=== PATIENT | male | born 1960 | race Caucasian/White ===

== ENCOUNTER 2024-05-02 07:53 | Inpatient (IN) | payer MEDICARE, BC ==
[~2024-05-02] VITALS: Ht 188 cm; Wt 113.6 kg
[2024-05-02] MEDS ORDERED: Morphine Sulfate 4 MG/1 ML Injection IV ONE (09:25)
[2024-05-02 09:29] LABS: BASOPHILS ABSOLUTE AUTO 0.07 K/mm3 (0.00-0.23); BASOPHILS PERCENT AUTO 1 % (0-2); EOSINOPHILS ABSOLUTE AUTO 0.13 K/mm3 (0.00-0.68); EOSINOPHILS PERCENT AUTO 1 % (0-6); Hematocrit 43.3 % (37.0-53.0); Hemoglobin 13.1 g/dL (13.5-17.5); IMMATURE GRAN ABSOLUTE AUTO 0.04 K/mm3 (0.00-0.10); IMMATURE GRAN PERCENT AUTO 0 % (0-1); LYMPHOCYTES PERCENT AUTO 11 % (21-46); MONOCYTES ABSOLUTE AUTO 1.21 K/mm3 (0.16-1.47); MONOCYTES PERCENT AUTO 10 % (4-13); Mean Corpuscular HGB 26.1 pg (26.0-34.0); Mean Corpuscular HGB Conc 30.3 g/dL (31.5-36.5); Mean Corpuscular Volume 86 fL (80-100); Mean Platelet Volume 8.6 fL (9.1-12.4); NEUTROPHILS ABSOLUTE AUTO 8.87 K/mm3 (1.96-9.15); NEUTROPHILS PERCENT AUTO 76 % (41-73); Platelet Count 469 K/mm3 (150-400); RDW Coefficient Variation 17.9 % (11.7-14.2); RDW Standard Deviation 56.6 fL (35.1-46.3); Red Blood Cell Count 5.02 M/mm3 (4.30-5.90); White Blood Cell Count 11.62 K/mm3 (4.00-11.30)
[2024-05-02 09:49] LABS: Albumin, Blood 2.7 g/dL (3.4-5.0); Albumin/Globulin Ratio 0.5 (0.8-1.8); Bilirubin, Total 0.5 mg/dL (0.1-1.0); Bun/Creatinine Ratio 22.8 (12.0-20.0); C-REACTIVE PROTEIN, EXT RANGE 12.6 mg/dL (0.000-0.300); Calcium, Blood 8.6 mg/dL (8.5-10.1); Creatinine, Blood 0.92 mg/dL (0.60-1.20); Globulin, Blood 5.5 g/dL (2.2-4.0); Potassium, Blood 3.5 mmol/L (3.5-5.5); Total Protein, Blood 8.2 g/dL (6.4-8.2)
[2024-05-02] MEDS ORDERED: Ampicillin Sod/Sulbactam Sod 3 GM in NS 100 ML IV ONE (10:25)
[2024-05-02] MEDS ORDERED: Vancomycin HCL 2,000 MG in NS 500 ML IV ONE (10:45)
[2024-05-02] MEDS ORDERED: Acetaminophen 325 MG TABLET PO PRN (12:15)
[2024-05-02] MEDS ORDERED: Polyethylene Glycol 3350 17 gm PO PRN (12:20)
[2024-05-02] MEDS ORDERED: Ondansetron HCl 2 MG / ML 2ML Vial IV PRN (12:20)
[2024-05-02] MEDS ORDERED: Morphine Sulfate 4 MG/1 ML Injection IV PRN (12:20)
[2024-05-02] MEDS ORDERED: OxyCODONE HCL 5 MG TAB PO PRN (12:20)
[2024-05-02] MEDS ORDERED: [UNRECOGNIZED DRUG - OTHER] (14:30)
[2024-05-02] MEDS ORDERED: KETAMINE (14:30)
[2024-05-02] MEDS ORDERED: IVERMECTIN PO (14:30)
[2024-05-02] MEDS ORDERED: AMPHOTERICIN B (14:30)
[2024-05-02 14:31] VITALS: BP 117/93
[2024-05-02] MEDS ORDERED: SOAANZ20 M3 PO (14:31)
[2024-05-02] MEDS ORDERED: [UNRECOGNIZED DRUG - OTHER] MC (14:31)
[2024-05-02] MEDS ORDERED: DULOXETINE HCL60 M1 PO (14:31)
[2024-05-02] MEDS ORDERED: ELIQUIS2.5 M1 PO (14:31)
[2024-05-02] MEDS ORDERED: COLACE100 MG PO (14:31)
[2024-05-02] MEDS ORDERED: LIPITOR80 MG PO (14:31)
[2024-05-02] MEDS ORDERED: Dilaudid 2 mg Ta2 MG (14:31)
[2024-05-02] MEDS ORDERED: NEURONTIN40010 PO (14:31)
[2024-05-02] MEDS ORDERED: FUROSEMIDE40 MG PO (14:31)
--- NOTE | 2024-05-02 14:31 | NUR ---
PATIENT ARRIVED TO THE FLOOR FROM ER TODAY. PATIENT IS A&OX2 - HE COULDN'T REMEMBER WHAT CITY HE IS IN OR WHAT THE DATE WAS. PATIENT IS CURRENTLY ON 2L NC WITH >90% OXYGEN SATS. PATIENT DENIES PAIN AT THIS TIME. PATIENT HAS BILATERAL LOWER LEG ULCERS BEHIND HIS SHINS. PATIENT ALSO HAS SCABS FROM HIS KNEES DOWN AND HIS RIGHT KNEE HAS MORE SWELLING NOTED THAN THE LEFT KNEE. PATIENT IS ABLE TO WIGGLE ALL FINGERS AND TOES WHEN ASKED. HE WAS ABLE TO SCOOT HIMSELF FROM THE ER GURNEY TO THE BED. PATIENT IS LAYING IN BED WITH CALL LIGHT IN REACH.
[2024-05-02] MEDS ORDERED: OXYC10TA19 PO (14:32)
[2024-05-02] MEDS ORDERED: LOSARTAN POTAS100 M1 PO (14:32)
--- NOTE | 2024-05-02 15:57 | NUR ---
THIS NURSE GAVE REPORT TO LYNDON LAKE. LYNDON LAKE HAS ASSUMED CARE AT THIS TIME.
--- NOTE | 2024-05-02 16:31 | NUR ---
REPORT RECEIVED FROM RNSAVANNAH
[2024-05-02] MEDS ORDERED: Ampicillin Sod/Sulbactam Sod 3 GM in NS 100 ML IV SCH (18:00)
[2024-05-02] MEDS ORDERED: NS 250 ML IV PRN (18:15)
--- NOTE | 2024-05-02 18:18 | NUR ---
DR. JEAN AT BEDSIDE AT THIS TIME
[2024-05-02 19:04] VITALS: BP 122/86
--- NOTE | 2024-05-02 19:29 | NUR ---
SUMMARY: NO ACUTE CHANGE SINCE RECEIVED REPORT. PT ABLE TO REST TONIGHT, BED ALARM ON FOR SAFETY, CALL LIGHT IN REACH. DR. JEAN ASPIRATED FLUID FROM R KNEE AT BEDSIDE, THIS RN IN ROOM TO ASSIST. FLUID SENT TO LAB. PLAN IS NPO AT 0000 AND R KNEE I&D TOMORROW. REPORT PASSED TO JEERMI HAMMOND RN.
[2024-05-02] MEDS ORDERED: Docusate Sodium/Senna 1 Tab PO SCH (21:00)
[2024-05-02] MEDS ORDERED: Lactobacil 2-S.Thermo-Bifido 1 1 Cap PO SCH (21:00)
[2024-05-02] MEDS ORDERED: Vancomycin HCL 1,750 MG in NS 500 ML IV SCH (23:00)
[2024-05-03] VITALS (8 sets, daily range): BP systolic 118–141; BP diastolic 88–104
[2024-05-03] MEDS ORDERED: Morphine Sulfate 10 MG/ML 1MLSYR IV PRN (02:55)
--- NOTE | 2024-05-03 04:34 | NUR ---
SHIFT SUMMARY S/P R SEPTIC KNEE. NO ACUTE CHANGES OVERNIGHT. VSS, PT ON 2L O2 VIA NC TO MAINTAIN SAT >90% WHILE ASLEEP. PT NPO IN ANTICIPATION OF SURGERY LATER TODAY. PT USES URINAL IND TO VOID. NO BM. PT NOT FULLY ORIENTED AT THIS TIME. PT AWAKES FROM SLEEP c LOUD GRUNTING. PT EXPRESSESS AGRESSIVE TONE WHEN OFFERING PAIN MANAGEMENT THAT IS NOT "THAT MORPHINE IV STUFF". PT EDUCATION ATTEMPTED R/T PAIN MANAGEMENT AND ALTERNATIVE/ADJUNCTIVE THERAPIES, PT NOT RECEPTIVE. 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 LEGS ELEVATED ON PILLOWS. PT SLEPT MOST OF THE NIGHT. CALL LIGHT IN REACH, BED IN LOWEST POSITION, WILL REPORT TO DAY RN.
[2024-05-03 05:01] LABS: BASOPHILS ABSOLUTE AUTO 0.06 K/mm3 (0.00-0.23); BASOPHILS PERCENT AUTO 1 % (0-2); EOSINOPHILS ABSOLUTE AUTO 0.22 K/mm3 (0.00-0.68); EOSINOPHILS PERCENT AUTO 3 % (0-6); Hematocrit 41.4 % (37.0-53.0); Hemoglobin 12.2 g/dL (13.5-17.5); IMMATURE GRAN ABSOLUTE AUTO 0.03 K/mm3 (0.00-0.10); IMMATURE GRAN PERCENT AUTO 0 % (0-1); LYMPHOCYTES ABSOLUTE AUTO 1.06 K/mm3 (0.84-5.20); LYMPHOCYTES PERCENT AUTO 14 % (21-46); MONOCYTES ABSOLUTE AUTO 0.82 K/mm3 (0.16-1.47); MONOCYTES PERCENT AUTO 11 % (4-13); Mean Corpuscular HGB 26.3 pg (26.0-34.0); Mean Corpuscular HGB Conc 29.5 g/dL (31.5-36.5); Mean Corpuscular Volume 89 fL (80-100); Mean Platelet Volume 8.7 fL (9.1-12.4); NEUTROPHILS ABSOLUTE AUTO 5.49 K/mm3 (1.96-9.15); NEUTROPHILS PERCENT AUTO 71 % (41-73); Platelet Count 385 K/mm3 (150-400); RDW Coefficient Variation 17.7 % (11.7-14.2); RDW Standard Deviation 57.7 fL (35.1-46.3); Red Blood Cell Count 4.64 M/mm3 (4.30-5.90); White Blood Cell Count 7.68 K/mm3 (4.00-11.30)
[2024-05-03 05:31] LABS: Albumin, Blood 2.4 g/dL (3.4-5.0); Anion Gap 7 mmol/L (3-11); Blood Urea Nitrogen 14 mg/dL (8-24); Bun/Creatinine Ratio 16.5 (12.0-20.0); CO2, Blood 29 mmol/L (21-32); Calcium, Blood 8.4 mg/dL (8.5-10.1); Chloride, Blood 107 mmol/L (98-108); Creatinine, Blood 0.85 mg/dL (0.60-1.20); Glomerular Filtration Rate 97 (60-); Glucose, Blood 96 mg/dL (70-99); Magnesium, Blood 2.4 mg/dL (1.6-2.4); Phosphorus, Blood 4.2 mg/dL (2.5-4.9); Potassium, Blood 3.7 mmol/L (3.5-5.5); Sodium, Blood 139 mmol/L (136-145)
[2024-05-03] MEDS ORDERED: DULoxetine HCL 60 MG Capsule DR PO SCH (09:00)
[2024-05-03] MEDS ORDERED: Furosemide 40 MG Tab PO SCH (09:00)
[2024-05-03] MEDS ORDERED: Gabapentin 300 MG Cap PO SCH (09:00)
[2024-05-03] MEDS ORDERED: Losartan Potassium 50 MG Tab PO SCH (09:00)
[2024-05-03] MEDS ORDERED: Lactated Ringer's 1,000 ML IV SCH (15:50)
[2024-05-03] MEDS ORDERED: Lactated Ringer's 1,000 ML IV ONE (15:53)
--- NOTE | 2024-05-03 16:08 | NUR ---
PATIENT JUST LEFT FOR THE OR.
--- NOTE | 2024-05-03 16:08 | NUR ---
PT HAS 20G IV TO RIGHT AC THAT FLUSHES WELL AND FLOWS TO GRAVITY.
--- NOTE | 2024-05-03 16:20 | NUR ---
TO OR [facility]IA [facility]
--- NOTE | 2024-05-03 16:29 | NUR ---
1606: PT BROUGHT FROM FLOOR TO [facility] FOR PROCEDURE. 1615: DR WILSON AT BEDSIDE TO PERFORM FEMORAL NERVE BLOCK IN PREOP. 1617: TIMEOUT COMPLETE BY RN. NO PREMEDS GIVEN. 1618: BLOCK START TIME. 1625: BLOCK END TIME. V/S MONITORED THROUGHOUT. PT O2 SATS WOULD DROP BECAUSE HE WAS HOLDING HIS BREATH. O2 SATS WOULD IMPROVE WHEN PT WAS TOLD TO TAKE DEEP BREATHS. OTHERWISE, VSS. PT TOLERATED BLOCK WELL.
--- NOTE | 2024-05-03 17:11 | NUR ---
1700 returned to room post i and d to right knee. pt denies pain. able to wiggle bilateral toes and bend both ankles. pt reports no feeling to right leg from 3" above right knee downward. denies nausea, snacks given per request. right rylie wrap present to rle clean dry and intact
--- NOTE | 2024-05-03 17:39 | NUR ---
PY CLAYTON PO FOOD AND FLUID WITHOUT NAUSEA, VOIDING CLEAR YELLOW URINE. PT DENIES ANY PAIN TO RIGHT LEG. NO CHANGE IN LEVEL OF SENSATION SINCE RETURN FROM SURGERY
--- NOTE | 2024-05-03 18:24 | NUR ---
PT REPORTS PAIN IS NOW 8/10 TO BOTH LEGS, DENIES SENSATION FROM 3" ABOVE KNEE TO BOTTOM OF RIGHT FOOT. PT RAISED VOICE WHEN OFFERED PAIN PILL AND STATES HE ONLY WANTS MORPHINE, DISCUSSED WITH PATIENT REGARDING TRANSITIONING TO PO MEDS SO WE CAN MAKE SURE HE HAS ADEQUATE PAIN RELIEF AT DISCHARGE. PT STATES "GIVE ME MY DAMN MORPHINE" MORPHINE GIVEN PT REQUEST R KNEE DRESSING DRY AND INTACT. MULTIPLE SCABS AND SCRATCHES TO BLE, PT REPORTS LEGS VERY ITCHY AND HE SCRATCHES THEM UNTIL THEY BLEED
--- NOTE | 2024-05-03 19:05 | NUR ---
ASSUMPTION OF CARE RECEIVIED REPORT FROM SAVANNAH LAKE. PT ASLEEP DURING BEDSIDE REPORT. VSS. POD 0 I&D R KNEE. SHYANNE WRAP IN PLACE. SCABS TO BILAT LOWER EXTREMITIES REMAIN UNCHANGED AT THIS TIME. IV ABX PER EMAR. CALL LIGHT IN REACH, BED IN LOWEST POSITION.
[2024-05-03] MEDS ORDERED: METHYLENE BLUE PO (21:14)
[2024-05-03] MEDS ORDERED: KETAMINE SL (21:17)
--- NOTE | 2024-05-03 22:02 | NUR ---
PT TRANSFER REPORT GIVEN TO [facility] FLOOR NURSE. VSS. TOLERATING ORALS. S/P I&D OF R KNEE. WBAT. ANTICIPATED IV ABX.
[2024-05-03 23:03] LABS: Vancomycin, Trough 21.3 ug/mL (5.0-10.0)
[2024-05-04] MEDS ORDERED: Vancomycin HCL 1,750 MG in NS 500 ML IV SCH (03:00)
[2024-05-04 03:42] VITALS: BP 130/89
[2024-05-04 05:30] LABS: Hematocrit 41.7 % (37.0-53.0); Hemoglobin 11.9 g/dL (13.5-17.5); Mean Corpuscular HGB 25.5 pg (26.0-34.0); Mean Corpuscular HGB Conc 28.5 g/dL (31.5-36.5); Mean Corpuscular Volume 89 fL (80-100); Mean Platelet Volume 8.9 fL (9.1-12.4); Platelet Count 376 K/mm3 (150-400); RDW Coefficient Variation 17.3 % (11.7-14.2); RDW Standard Deviation 56.5 fL (35.1-46.3); Red Blood Cell Count 4.67 M/mm3 (4.30-5.90); White Blood Cell Count 6.58 K/mm3 (4.00-11.30)
[2024-05-04 05:55] LABS: Albumin, Blood 2.4 g/dL (3.4-5.0); Anion Gap 10 mmol/L (3-11); Blood Urea Nitrogen 16 mg/dL (8-24); Bun/Creatinine Ratio 17.9 (12.0-20.0); CO2, Blood 25 mmol/L (21-32); Chloride, Blood 109 mmol/L (98-108); Glomerular Filtration Rate 95 (60-); Glucose, Blood 96 mg/dL (70-99); Potassium, Blood 4.1 mmol/L (3.5-5.5); Sodium, Blood 140 mmol/L (136-145)
--- NOTE | 2024-05-04 07:28 | NUR ---
SHIFT SUMMARY: PATIENT FULLY ORIENTED, COOPERATIVE, DARK HUMOR. WRAPPED LEGS IN DRESSINGS. PUT ON CPAP AT NIGHT. SLEPT FAIRLY WELL. VANC TROUGH CRITICAL AT 21.3, SHANI HAYNES AWARE.
[2024-05-04 07:31] VITALS: BP 144/94
[2024-05-04] MEDS ORDERED: Torsemide 20 MG TAB PO SCH (09:00)
--- NOTE | 2024-05-04 13:05 | NUR ---
POSSIBLE [place] TRANSFER FOR HIGHER LEVEL OF CARE CONTACTED [facility] #[phone] PER COORDINATOR WILL REACH OUT FOR BED AVAILABLITY [facility] #[phone] NO BED AT THIS TIME BUT INFO PROVIDED TO ORTHO AND IMAGES SENT [facility] #[phone] NO BED AT THIS TIME BUT INFO PROVIDED TO ORTHO AND IMAGES SENT
--- NOTE | 2024-05-04 16:22 | NUR ---
SHIFT SUMMARY MR DOUGLAS WAS ABLE TO ANSWER ORIENTATION QUESTIONS, HAS BEEN CLEAR ABOUT MANY ASPECTS OF HIS CARE. OCCASIONAL UNUSUAL COMMENTS. HE VERBALISED THAT TAKING OXYCODONE MAKES HIM ANGRY AND THAT IT DOESN'T HELP HIS PAIN, THAT MORPHINE TAKES THE EDGE OFF HIS PAIN. MOST OF THE PAIN IS IN HIS RIGHT KNEE WITH SOME GENERALISED PAINS ALSO. HE HAS BEEN ACCEPTED BY [facility] BUT AWAITING BED AVAILABLTY FOR TRANSFER. RIGHT KNEE DRESSING C,D,I. LEFT UNDISTURBED. DRESSINGS TO BLE PLACED 05/03/24 AT 2200HRS ARE C,D,I. PT EDUCATED ON PRESSURE RELIEF AND ASSISTED TO REPOSITION WITH PILLOWS Q2HRS. HE USES CPAP WITH 3L NC O2 WHEN SLEEPING. WHEN AWAKE HE SAID THAT HE MOSTLY DOES NOT WEAR OXYGEN AT HOME IN THE DAYTIME. HE IS ON CONTINUOUS PULSE OX AND DOES DESAT INTO THE 80S SOMETIMES ON ROOM AIR, SOMETIMES IN THE 90S ON ROOM AIR, USING OXYGEN 2-4L NC DURING THE DAY INTERMITTANTLY. PT TAKES IT OFF HIMSELF. BED LOW, CALL LIGHT IN REACH.
[2024-05-04 17:09] VITALS: BP 144/94
--- NOTE | 2024-05-04 17:17 | NUR ---
RN NOTE REPORT CALLED TO DC NURSE AT [facility] WHERE HE IS GOING TO ROOM 8125. 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
--- NOTE | 2024-05-04 19:17 | NUR ---
NOTIFIED JO-ANN IRWIN THAT PT DISCHARGED FROM HERE TO [facility] AT 1830 TONIGHT. - [facility]TH[facility]
--- NOTE | 2024-05-04 19:18 | NUR ---
DISCHARGE NOTE MR DOUGLAS WAS AMBULANCE TRANSPORTED TO [facility] AT 1830HRS. HE AGREED TO TRANSPORT TO [facility] BUT VOICED A LOT OF DISCONTENT BECAUSE HE SAID HE WOULD RATHER GO TO [facility] [place]. WHEN THE PARAMEDICS ARRIVED HE VERBALISED A LOT OF SWEAR WORDS BUT DID REPEAT THAT HE AGREED TO TRANSPORT TO [facility].
== END 2024-05-04 18:39 | disposition short-term general hospital (02) | DRG 501 ==
LOC: ER 07:53 → MEDS 12:15 → SURS 12:15 → MEDS 05-03 20:45
PROVIDERS: Orthopaedic Surgery Sports Medicine; Student in an Organized Health Care Education/Training Program; ADMIT Internal Medicine
PROC: 0S993ZX Drainage of Right Hip Joint, Percutaneous Approach, Diagnostic (ICD-10-PCS; 2024-05-03)
PROC: 0JDN0ZZ Extraction of Right Lower Leg Subcutaneous Tissue and Fascia, Open Approach (ICD-10-PCS; principal; 2024-05-03 16:15)
DX: T84.53XA Infection and inflammatory reaction due to internal right knee prosthesis, initial encounter (principal); A69.20 Lyme disease, unspecified; E66.2 Morbid (severe) obesity with alveolar hypoventilation; M00.061 Staphylococcal arthritis, right knee; I50.42 Chronic combined systolic (congestive) and diastolic (congestive) heart failure; L02.415 Cutaneous abscess of right lower limb; L03.115 Cellulitis of right lower limb; L97.829 Non-pressure chronic ulcer of other part of left lower leg with unspecified severity; L97.819 Non-pressure chronic ulcer of other part of right lower leg with unspecified severity; B95.61 Methicillin susceptible Staphylococcus aureus infection as the cause of diseases classified elsewhere; M71.161 Other infective bursitis, right knee; G89.29 Other chronic pain; I27.20 Pulmonary hypertension, unspecified; I11.0 Hypertensive heart disease with heart failure; K74.60 Unspecified cirrhosis of liver; J44.9 Chronic obstructive pulmonary disease, unspecified; I48.0 Paroxysmal atrial fibrillation; F03.90 Unspecified dementia, unspecified severity, without behavioral disturbance, psychotic disturbance, mood disturbance, and anxiety; Z74.09 Other reduced mobility; Z96.652 Presence of left artificial knee joint; Z86.16 Personal history of COVID-19; Z99.81 Dependence on supplemental oxygen; Z79.01 Long term (current) use of anticoagulants; Z68.32 Body mass index [BMI] 32.0-32.9, adult
CPT/HCPCS: 36415; 73562-RT; 80053; 80069; 80202; 83605; 83735; 85025; 85027; 85651; 86140; 87040; 87070; 87075; 87077; 87147; 87186; 87205; 93005; 93010; 93306; 94660; 96365; 96367; 96375; 99284-25; A9270; J0295; J2270; J3370; J7040; J7050; J7120